=== PATIENT | male | born 2000 | race Caucasian/White ===

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

== ENCOUNTER 2021-07-09 12:34 | Emergency (ER) | payer BC ==
[~2021-07-09] VITALS: Ht 175.3 cm; Wt 68.0 kg
[2021-07-09 13:24] VITALS: BP 120/54
[2021-07-09] MEDS ORDERED: HYDROCODON-ACE1 EAC7 PO (13:33)
== END 2021-07-09 13:25 | disposition home or self-care (01) ==
LOC: M.ERS 12:34
DX: S62.320A Displaced fracture of shaft of second metacarpal bone, right hand, initial encounter for closed fracture (principal); Z90.89 Acquired absence of other organs; W19.XXXA Unspecified fall, initial encounter; Y93.89 Activity, other specified; Y92.89 Other specified places as the place of occurrence of the external cause; Y99.8 Other external cause status